=== PATIENT | female | born 1965 | race Caucasian/White ===

== ENCOUNTER 2017-03-01 23:58 | Observation (INO) | payer SELFPAY ==
[2017-03-02] MEDS ORDERED: fentaNYL 250 MCG/5 ML SDV IVPUSH ONE (00:09)
--- NOTE | 2017-03-02 00:35 | EDM.PDOC ---
ED HPI GENERAL MEDICAL PROBLEM - General Chief Complaint: Trauma Stated Complaint: BACK INJURY FROM HORSE BUCKING Time Seen by Provider: 03/02/17 00:12 Source of Information: Reports: Patient, RN - History of Present Illness INITIAL COMMENTS - FREE TEXT/NARRATIVE: she was bucked off a horse and now has pain over left shoulder/clavicle area and mid back. She does not think that she lost consciousness she drank three glasses or wine. generalized Pain Score (Numeric/FACES): 10 - Related Data Allergies Allergy/AdvReac Type Severity Reaction Status Date / Time codeine Allergy Vomiting Verified 08/21/16 20:10 Home Meds: Home Meds Blood Pressure Medication 03/02/17 [History] Past Medical History Other Cardiovascular History: REports have "flutters daily", "had a Holter monitoring about [address] Harris" Other Respiratory History: 27 yr history of smoking, current use reported as 1 pack/day Other Gastrointestinal History: "symptoms of Reflux most mornings, I take Rolaids when needed", Reports "hepatitis in s 'lesser type" Other Musculoskeletal History: Arthritits "all joints - stiff", hx: fracturing ribs and arms Other Psychiatric History: Denies, but reports "nervous, anxious about having a majory surgery" Endocrine/Metabolic History: Denies: Diabetes, Type II Other Endocrine/Metabolic History: [facility] screening in [place] and they told me "borderline diabetic" Other Dermatologic History: Psoriasis, currently on Right Calf, and Left knee and one in scalp - Infectious Disease History Infectious Disease History: Reports: None - Past Surgical History Other HEENT Surgeries/Procedures: [place] teeth extracted Other Female Surgeries/Procedures: 2 prior Cervical Conizations Social & Family History - Tobacco Use Smoking Status *Q: Current Some Day Smoker Years of Tobacco use: 27 Packs/Tins Daily: 0.4 - Recreational Drug Use Recreational Drug Use: No Drug Use in Last 12 Months: No Review of Systems - Review of Systems Review Of Systems: See Below Eyes: Denies: Blindness Mouth/Throat: Denies: Bleeding Respiratory: Denies: Shortness of Breath, Cough Cardiovascular: Denies: Chest Pain GI/Abdominal: Denies: Abdominal Pain ED EXAM, GENERAL - Physical Exam Exam: See Below (normal sensation and motor function LE's and UE's) Free Text/Narrative:: alert pupils equal and reactive no nystagmus head atraumatic neck non tender neg kebede sign neg racoon eyes normal speech lungs CTA heart RRR without m abdomen non tender marked tenderness over the region of the left clavicle and shoulder and superior anterolateral chest wall on the left no extremity injury noted she comes by EMS with spinal immobilization. Course - Vital Signs Last Recorded V/S: Last Vital Signs Temp 97.9 F 03/02/17 03:08 Pulse 100 03/02/17 03:16 Resp 16 03/02/17 03:16 BP 110/56 L 03/02/17 03:08 Pulse Ox 96 03/02/17 03:16 - Orders/Labs/Meds Orders: Active Orders 24 hr Category Date Time Status Communication Order [RC] PER UNIT ROUTINE Care 03/02/17 03:26 Active Cervical Spine wo Cont [CT] Stat Exams 03/02/17 00:04 Taken Chest 1V Frontal [CR] Stat Exams 03/02/17 00:04 Taken Chest 1V Frontal [CR] Stat Exams 03/02/17 01:59 Taken Chest wo Cont [CT] Stat Exams 03/02/17 01:59 Taken Clavicle Lt [CR] Stat Exams 03/02/17 00:04 Taken Clavicle Lt [CR] Stat Exams 03/02/17 01:59 Taken Head w wo Cont [CT] Stat Exams 03/02/17 00:04 Taken Lumbar Spine wo Cont [CT] Stat Exams 03/02/17 00:04 Taken Shoulder Comp Lt [CR] Stat Exams 03/02/17 00:04 Taken Thoracic Spine wo Cont [CT] Stat Exams 03/02/17 00:04 Taken Blood Alcohol [ETHANOL BLOOD MEDICAL] [CHEM] Stat Lab 03/02/17 03:34 Ordered CBC WITH AUTO DIFF [HEME] Stat Lab 03/02/17 03:27 Ordered COMPREHENSIVE METABOLIC PN,CMP [CHEM] Stat Lab 03/02/17 03:27 Ordered UA W/MICROSCOPIC [URIN] Stat Lab 03/02/17 03:27 Uncollected fentaNYL [Sublimaze] Med 03/02/17 02:00 Active 50 mcg IVPUSH Q45M PRN Medication Orders Fentanyl (Sublimaze) 50 mcg IVPUSH Q45M PRN PRN Reason: Pain Last Admin: 03/02/17 03:06 Dose: 50 mcg Meds: Medications Generic Name Dose Route Start Last Admin Trade Name Freq PRN Reason Stop Dose Admin Fentanyl 50 mcg 03/02/17 02:00 03/02/17 03:06 Sublimaze IVPUSH 50 mcg Q45M PRN Administration Pain Discontinued Medications Generic Name Dose Route Start Last Admin Trade Name Lizbet PRN Reason Stop Dose Admin Bacitracin 1 dose 03/02/17 02:42 03/02/17 02:53 Bacitracin Oint 1 Gm TOP 03/02/17 02:43 1 dose ONETIME ONE Administration Fentanyl 50 mcg 03/02/17 00:09 03/02/17 00:50 Sublimaze IVPUSH 03/02/17 00:10 Not Given ONETIME ONE Fentanyl Confirm 03/02/17 00:45 03/02/17 00:49 Sublimaze Administered 03/02/17 00:46 50 mcg Dose Administration 100 mcg .ROUTE .STK-MED ONE Fentanyl 50 mcg 03/02/17 01:23 03/02/17 01:34 Sublimaze IVPUSH 03/02/17 01:24 50 mcg ONETIME ONE Administration - Re-Assessments/Exams Free Text/Narrative Re-Assessment/Exam: 03/02/17 03:39 I reviewed radiographic findings with her. I spoke with Dr LEDESMA who agrees to accept as admission. See orders. Ronald Le MD Departure - Departure Time of Disposition: 03:42 Disposition: Admitted As Inpatient 64 Condition: Fair Clinical Impression: Trauma, Pulmonary contusion, Pneumothorax on left, Fracture of rib Closed left clavicular fracture Qualifiers: Encounter type: initial encounter Vertebral compression fracture Qualifiers: Encounter type: initial encounter Qualified Code(s): M48.50XA - Collapsed vertebra, not elsewhere classified, site unspecified, initial encounter for fracture - Discharge Information Forms: ED Department Discharge - My Orders Last 24 Hours: My Active Orders 03/02/17 00:04 Cervical Spine wo Cont [CT] Stat Chest 1V Frontal [CR] Stat Clavicle Lt [CR] Stat Head w wo Cont [CT] Stat Lumbar Spine wo Cont [CT] Stat Shoulder Comp Lt [CR] Stat Thoracic Spine wo Cont [CT] Stat 03/02/17 01:59 Chest 1V Frontal [CR] Stat Chest wo Cont [CT] Stat Clavicle Lt [CR] Stat 03/02/17 02:00 fentaNYL [Sublimaze] 50 mcg IVPUSH Q45M PRN 03/02/17 03:26 Communication Order [RC] PER UNIT ROUTINE 03/02/17 03:27 CBC WITH AUTO DIFF [HEME] Stat COMPREHENSIVE METABOLIC PN,CMP [CHEM] Stat UA W/MICROSCOPIC [URIN] Stat 03/02/17 03:34 Blood Alcohol [ETHANOL BLOOD MEDICAL] [CHEM] Stat - Assessment/Plan Last 24 Hours: My Active Orders 03/02/17 00:04 Cervical Spine wo Cont [CT] Stat Chest 1V Frontal [CR] Stat Clavicle Lt [CR] Stat Head w wo Cont [CT] Stat Lumbar Spine wo Cont [CT] Stat Shoulder Comp Lt [CR] Stat Thoracic Spine wo Cont [CT] Stat 03/02/17 01:59 Chest 1V Frontal [CR] Stat Chest wo Cont [CT] Stat Clavicle Lt [CR] Stat 03/02/17 02:00 fentaNYL [Sublimaze] 50 mcg IVPUSH Q45M PRN 03/02/17 03:26 Communication Order [RC] PER UNIT ROUTINE 03/02/17 03:27 CBC WITH AUTO DIFF [HEME] Stat COMPREHENSIVE METABOLIC PN,CMP [CHEM] Stat UA W/MICROSCOPIC [URIN] Stat 03/02/17 03:34 Blood Alcohol [ETHANOL BLOOD MEDICAL] [CHEM] Stat
[2017-03-02] MEDS ORDERED: fentaNYL 100 MCG/2 ML SDV ONE (00:45)
[2017-03-02] MEDS ORDERED: fentaNYL 100 MCG/2 ML SDV IVPUSH ONE ×2 (01:20→01:23)
[2017-03-02] MEDS ORDERED: Bacitracin Oint 1 GM U/D Packet TOP ONE (02:42)
[2017-03-02] MEDS: fentaNYL 100 MCG/2 ML SDV IVPUSH PRN ×4 (03:06→13:37)
[2017-03-02] MEDS ORDERED: Ondansetron 4 MG/2 ML SDV IVPUSH PRN (03:44)
[2017-03-02] MEDS ORDERED: Acetaminophen 325 MG Tab PO PRN (03:44)
[2017-03-02 04:12] LABS: CHLORIDE,CL 107 mmol/L (98-110); SODIUM,NA 139 mmol/L (136-146)
[2017-03-02] MEDS: Sodium Chloride 0.9% 1,000 ML IV SCH ×2 (04:45→12:34)
[2017-03-02] MEDS: Ketorolac 30 MG/ML SDV IVPUSH PRN ×2 (05:33→18:05)
[2017-03-02] MEDS: Docusate Sodium 100 MG Cap PO SCH (08:42)
--- NOTE | 2017-03-02 08:51 | PCM.CONS ---
<Tami Castro R - Last Filed: 03/02/17 08:46> H&P History of Present Illness - General Date of Service: 03/02/17 Source of Information: Patient History Limitations: Reports: No Limitations - History of Present Illness Initial Comments - Free Text/Narative: Patient is a 51 year old right hand dominant female who was bucked off a horse she was training last evening. She reports loss of consciousness, but is unsure for how long she was unconscious. Her son called EMS services and she was brought to the ED. She was admitted to the ICU by Dr. Aly for monitoring. She was found to have a left midshaft clavicle fracture. Orthopedic consult was obtained for this. She also has a small left pneumothorax as well as rib fractures and thoracic spine fracture, which has been reported to us as stable by Dr. Aly. She does report pain over the clavicle fracture site, as well as in the left elbow and forearm. No x-rays of the elbow or forearm have been done. She has refused a left hand x-ray earlier today. She had been complaining of her hand feeling odd, but did not realize she had 2 IV access sites in her dorsal hand. She denies previous injury to her left clavicle or upper extremity. She denies shortness of breath at rest. She denies distal paralysis and paresthesias. Onset of Symptoms: Reports: Sudden Symptom Onset Date: 03/01/17 Location: Reports: Chest, Back, Upper Extremity, Left Quality: Reports: Sharp, Stabbing Severity: Moderate Improves with: Reports: Rest Worsens with: Reports: Movement Context: Reports: Trauma Associated Symptoms: Reports: No Other Symptoms generalized Pain Score (Numeric/FACES): 8 - Related Data Allergies/Adverse Reactions: Allergies Allergy/AdvReac Type Severity Reaction Status Date / Time codeine Allergy Vomiting Verified 08/21/16 20:10 Home Medications: Home Meds ALPRAZolam [Alprazolam] 0.25 - 0.5 mg PO DAILY PRN 03/02/17 [History] Metoprolol Succinate 25 mg PO BID 03/02/17 [History] Past Medical History Other Cardiovascular History: REports have "flutters daily", "had a Holter monitoring about [address] Harris" Other Respiratory History: 27 yr history of smoking, current use reported as 1 pack/day Other Gastrointestinal History: "symptoms of Reflux most mornings, I take Rolaids when needed", Reports "hepatitis in '80's 'lesser type" Other Musculoskeletal History: Arthritits "all joints - stiff", hx: fracturing ribs and arms Other Psychiatric History: Denies, but reports "nervous, anxious about having a majory surgery" Endocrine/Metabolic History: Denies: Diabetes, Type II Other Endocrine/Metabolic History: [facility] screening in [place] and they told me "borderline diabetic" Other Dermatologic History: Psoriasis, currently on Right Calf, and Left knee and one in scalp - Infectious Disease History Infectious Disease History: Reports: None - Past Surgical History Other HEENT Surgeries/Procedures: [place] teeth extracted Other Female Surgeries/Procedures: 2 prior Cervical Conizations Social & Family History - Family History Family Medical History: Noncontributory - Tobacco Use Smoking Status *Q: Current Every Day Smoker Years of Tobacco use: 30 Packs/Tins Daily: 1 Second Hand Smoke Exposure: No - Caffeine Use Caffeine Use: Reports: Coffee - Alcohol Use Days Per Week of Alcohol Use: 7 Number of Drinks Per Day: 2 Total Drinks Per Week: 14 Date of Last Drink: 03/01/17 - Recreational Drug Use Recreational Drug Use: No Drug Use in Last 12 Months: No H&P Review of Systems - Review of Systems: Review Of Systems: See Below General: Reports: No Symptoms HEENT: Reports: Headaches Pulmonary: Denies: Shortness of Breath Cardiovascular: Denies: Chest Pain, Palpitations Gastrointestinal: Reports: No Symptoms Genitourinary: Reports: No Symptoms Musculoskeletal: Reports: Arm Pain, Back Pain Skin: Reports: Bruising Psychiatric: Reports: No Symptoms Neurological: Reports: No Symptoms Hematologic/Lymphatic: Reports: No Symptoms Immunologic: Reports: No Symptoms Exam - Exam Exam: See Below - Vital Signs Vital Signs: Last Vital Signs Temp 97.8 F 03/02/17 04:12 Pulse 100 03/02/17 03:55 Resp 17 03/02/17 07:00 BP 107/64 03/02/17 07:00 Pulse Ox 95 03/02/17 07:00 Weight: 73.4 kg - Exam Quality Assessment: Supplemental Oxygen General: Alert, Oriented Cardiovascular: Regular Rate, Regular Rhythm Extremities: Other (Exam of LUE reveals no obvious deformity. Skin integrity is intact. 2 IV access sites on dorsal aspect of hand. Slight ecchymosis to anterior chest wall. Tender with palpation over SC and AC joint, over midshaft clavicle site. Nontender with palpation of medial and lateral epicondyles, no antecubital fossa tenderness. Tender diffusely with palpation of soft tissues of elbow and forearm. Passively allows 10* short of full extension with flexion to 95*. 45* of pronation and full supination. Able to actively flex and extend wrist. AIN, PIN, ulnar motor is intact. Radial, ulnar, median sensation intact. Radial pulse 2+. ) Peripheral Pulses: 2+: Radial (L) Skin: Warm, Dry - Patient Data Lab Results Last 24 hrs: Laboratory Results - last 24 hr 03/02/17 03/02/17 03/02/17 Range/Units 03:40 03:40 03:40 WBC 17.50 H (4.0-11.0) K/uL RBC 4.30 (4.30-5.90) M/uL Hgb 13.5 (12.0-16.0) g/dL Hct 40.2 (36.0-46.0) % MCV 93.5 (80.0-98.0) fL MCH 31.4 (27.0-32.0) pg MCHC 33.6 (31.0-37.0) g/dL RDW Std Deviation 46.8 (28.0-62.0) fl RDW Coeff of Jimmie 14 (11.0-15.0) % Plt Count 254 (150-400) K/uL MPV 8.80 (7.40-12.00) fL Neut % (Auto) 79.1 (48.0-80.0) % Lymph % (Auto) 14.4 L (16.0-40.0) % Ellis % (Auto) 6.3 (0.0-15.0) % Eos % (Auto) 0.1 (0.0-7.0) % Baso % (Auto) 0.1 (0.0-1.5) % Neut # (Auto) 13.8 H (1.4-5.7) K/uL Lymph # (Auto) 2.5 H (0.6-2.4) K/uL Ellis # (Auto) 1.1 H (0.0-0.8) K/uL Eos # (Auto) 0.0 (0.0-0.7) K/uL Baso # (Auto) 0.0 (0.0-0.1) K/uL Nucleated RBC % 0.0 /100WBC Nucleated RBCs # 0 K/uL Sodium 139 (136-146) mmol/L Potassium 4.3 (3.5-5.1) mmol/L Chloride 107 (98-110) mmol/L Carbon Dioxide 21 (21-31) mmol/L BUN 9 (6.0-23.0) mg/dL Creatinine 0.8 (0.6-1.5) mg/dL Est Cr Clr Drug Dosing 70.23 mL/min Estimated GFR (MDRD) > 60.0 ml/min Glucose 116 H (60-110) mg/dL Calcium 8.9 (8.8-10.8) mg/dL Magnesium (1.5-2.3) mEq/L Total Bilirubin 0.3 (0.1-1.5) mg/dL AST 146 H (5-40) IU/L ALT 145 H (8-54) IU/L Alkaline Phosphatase 122 (40-150) Total Protein 7.1 (6.0-8.0) g/dL Albumin 4.3 (3.5-5.0) g/dL Globulin 2.8 (2.0-3.5) g/dL Albumin/Globulin Ratio 1.5 (1.3-2.8) Ethyl Alcohol 31.9 mg/dL 03/02/17 Range/Units 03:40 WBC (4.0-11.0) K/uL RBC (4.30-5.90) M/uL Hgb (12.0-16.0) g/dL Hct (36.0-46.0) % MCV (80.0-98.0) fL MCH (27.0-32.0) pg MCHC (31.0-37.0) g/dL RDW Std Deviation (28.0-62.0) fl RDW Coeff of Jimmie (11.0-15.0) % Plt Count (150-400) K/uL MPV (7.40-12.00) fL Neut % (Auto) (48.0-80.0) % Lymph % (Auto) (16.0-40.0) % Ellis % (Auto) (0.0-15.0) % Eos % (Auto) (0.0-7.0) % Baso % (Auto) (0.0-1.5) % Neut # (Auto) (1.4-5.7) K/uL Lymph # (Auto) (0.6-2.4) K/uL Ellis # (Auto) (0.0-0.8) K/uL Eos # (Auto) (0.0-0.7) K/uL Baso # (Auto) (0.0-0.1) K/uL Nucleated RBC % /100WBC Nucleated RBCs # K/uL Sodium (136-146) mmol/L Potassium (3.5-5.1) mmol/L Chloride (98-110) mmol/L Carbon Dioxide (21-31) mmol/L BUN (6.0-23.0) mg/dL Creatinine (0.6-1.5) mg/dL Est Cr Clr Drug Dosing mL/min Estimated GFR (MDRD) ml/min Glucose (60-110) mg/dL Calcium (8.8-10.8) mg/dL Magnesium 1.7 (1.5-2.3) mEq/L Total Bilirubin (0.1-1.5) mg/dL AST (5-40) IU/L ALT (8-54) IU/L Alkaline Phosphatase (40-150) Total Protein (6.0-8.0) g/dL Albumin (3.5-5.0) g/dL Globulin (2.0-3.5) g/dL Albumin/Globulin Ratio (1.3-2.8) Ethyl Alcohol mg/dL Result Diagrams: 03/02/17 03:40 03/02/17 03:40 Imaging Impressions Last 24 hrs: 1V of L clavicle done x2 this AM shows non to minimally displaced midshaft clavicle fracture. Consult PN Assessment/Plan Procedures: Procedures ASSAY OF AMYLASE (08/21/16) ASSAY OF FREE THYROXINE (03/02/15) ASSAY OF LIPASE (08/21/16) ASSAY OF MAGNESIUM (03/02/15) ASSAY OF TOTAL THYROXINE (03/02/15) ASSAY OF TROPONIN QUANT (08/21/16) ASSAY THYROID STIM HORMONE (12/24/15) BLOOD CULTURE FOR BACTERIA (08/21/16) BLOOD TYPING SEROLOGIC ABO (02/19/15) BLOOD TYPING SEROLOGIC RH(D) (02/19/15) CHEST X-RAY 2VW FRONTAL&LATL (12/24/15) CHORIONIC GONADOTROPIN ASSAY (02/19/15) COMPLETE CBC AUTOMATED (07/15/14) COMPLETE CBC W/AUTO DIFF WBC (08/21/16) COMPREHEN METABOLIC PANEL (08/21/16) CT ABD & PELV W/CONTRAST (08/21/16) ELECTROCARDIOGRAM TRACING (12/24/15) EMERGENCY DEPT VISIT (08/21/16) FREE ASSAY (FT-3) (03/02/15) HYDRATE IV INFUSION ADD-ON (08/21/16) LIPID PANEL (12/24/15) METABOLIC PANEL TOTAL CA (12/24/15) RBC ANTIBODY SCREEN (02/19/15) REPAIR BLADDER DEFECT (02/19/15) ROUTINE VENIPUNCTURE (08/21/16) THER/PROPH/DIAG INJ IV PUSH (08/21/16) TISSUE EXAM BY PATHOLOGIST (02/19/15) TISSUE EXAM BY PATHOLOGIST (01/23/15) TX/PRO/DX INJ NEW DRUG ADDON (08/21/16) URINALYSIS AUTO W/SCOPE (08/29/16) URINE CULTURE/COLONY COUNT (08/21/16) URINE TEST (08/21/16) US EXAM PELVIC COMPLETE (02/10/15) VAG HYST INCLUDING T/O (02/19/15) X-RAY EXAM RIBS UNI 2 VIEWS (07/15/14) (1) Closed left clavicular fracture SNOMED Code(s): 94145463 Code(s): S42.002A - FRACTURE OF UNSP PART OF LEFT CLAVICLE, INIT FOR CLOS FX Current Visit: Yes Qualifiers: Encounter type: initial encounter Clavicle location: shaft Fracture alignment: nondisplaced Qualified Code(s): S42.025A - Nondisplaced fracture of shaft of left clavicle, initial encounter for closed fracture Problem List Initiated/Reviewed/Updated: Yes Plan: recommend conservative treatment for L midshaft clavicle fracture - sling, NWB, no active range of motion to L shoulder, pain management will obtain 3v of L elbow and ap/lat of forearm. I do not anticipate fracture but patient complains of pain. will add Randolph 5/325 for pain control will continue to follow while hospitalized plan for follow-up in Ortho clinic in 2weeks for new x-ray of L clavicle - we will schedule for patient <Ly Armstrong - Last Filed: 03/02/17 19:41> Exam - Vital Signs Vital Signs: Last Vital Signs Temp 98.2 F 03/02/17 15:00 Pulse 96 03/02/17 15:59 Resp 17 03/02/17 19:00 BP 129/79 03/02/17 19:00 Pulse Ox 97 03/02/17 19:00 - Patient Data Lab Results Last 24 hrs: Laboratory Results - last 24 hr 03/02/17 03/02/17 03/02/17 Range/Units 03:40 03:40 03:40 WBC 17.50 H (4.0-11.0) K/uL RBC 4.30 (4.30-5.90) M/uL Hgb 13.5 (12.0-16.0) g/dL Hct 40.2 (36.0-46.0) % MCV 93.5 (80.0-98.0) fL MCH 31.4 (27.0-32.0) pg MCHC 33.6 (31.0-37.0) g/dL RDW Std Deviation 46.8 (28.0-62.0) fl RDW Coeff of Jimmie 14 (11.0-15.0) % Plt Count 254 (150-400) K/uL MPV 8.80 (7.40-12.00) fL Neut % (Auto) 79.1 (48.0-80.0) % Lymph % (Auto) 14.4 L (16.0-40.0) % Ellis % (Auto) 6.3 (0.0-15.0) % Eos % (Auto) 0.1 (0.0-7.0) % Baso % (Auto) 0.1 (0.0-1.5) % Neut # (Auto) 13.8 H (1.4-5.7) K/uL Lymph # (Auto) 2.5 H (0.6-2.4) K/uL Ellis # (Auto) 1.1 H (0.0-0.8) K/uL Eos # (Auto) 0.0 (0.0-0.7) K/uL Baso # (Auto) 0.0 (0.0-0.1) K/uL Nucleated RBC % 0.0 /100WBC Nucleated RBCs # 0 K/uL Sodium 139 (136-146) mmol/L Potassium 4.3 (3.5-5.1) mmol/L Chloride 107 (98-110) mmol/L Carbon Dioxide 21 (21-31) mmol/L BUN 9 (6.0-23.0) mg/dL Creatinine 0.8 (0.6-1.5) mg/dL Est Cr Clr Drug Dosing 70.23 mL/min Estimated GFR (MDRD) > 60.0 ml/min Glucose 116 H (60-110) mg/dL Calcium 8.9 (8.8-10.8) mg/dL Magnesium (1.5-2.3) mEq/L Total Bilirubin 0.3 (0.1-1.5) mg/dL AST 146 H (5-40) IU/L ALT 145 H (8-54) IU/L Alkaline Phosphatase 122 (40-150) Total Protein 7.1 (6.0-8.0) g/dL Albumin 4.3 (3.5-5.0) g/dL Globulin 2.8 (2.0-3.5) g/dL Albumin/Globulin Ratio 1.5 (1.3-2.8) Urine Color Urine Appearance Urine pH (5.0-8.0) Ur Specific [place] (1.001-1.035) Urine Protein (NEGATIVE) mg/dL Urine Glucose (UA) (NEGATIVE) mg/dL Urine Ketones (NEGATIVE) mg/dL Urine Occult Blood (NEGATIVE) Urine Nitrite (NEGATIVE) Urine Bilirubin (NEGATIVE) Urine Urobilinogen (<2.0) EU/dL Ur Leukocyte Esterase (NEGATIVE) Urine RBC (0-2/HPF) Urine WBC (0-5/HPF) Ur Epithelial Cells (NONE-FEW) Amorphous Sediment (NEGATIVE) Urine Bacteria (NEGATIVE) Hyaline Casts (0-2/LPF) Urine Mucus (NONE-MOD) Ethyl Alcohol 31.9 mg/dL 03/02/17 03/02/17 Range/Units 03:40 08:15 WBC (4.0-11.0) K/uL RBC (4.30-5.90) M/uL Hgb (12.0-16.0) g/dL Hct (36.0-46.0) % MCV (80.0-98.0) fL MCH (27.0-32.0) pg MCHC (31.0-37.0) g/dL RDW Std Deviation (28.0-62.0) fl RDW Coeff of Jimmie (11.0-15.0) % Plt Count (150-400) K/uL MPV (7.40-12.00) fL Neut % (Auto) (48.0-80.0) % Lymph % (Auto) (16.0-40.0) % Ellis % (Auto) (0.0-15.0) % Eos % (Auto) (0.0-7.0) % Baso % (Auto) (0.0-1.5) % Neut # (Auto) (1.4-5.7) K/uL Lymph # (Auto) (0.6-2.4) K/uL Ellis # (Auto) (0.0-0.8) K/uL Eos # (Auto) (0.0-0.7) K/uL Baso # (Auto) (0.0-0.1) K/uL Nucleated RBC % /100WBC Nucleated RBCs # K/uL Sodium (136-146) mmol/L Potassium (3.5-5.1) mmol/L Chloride (98-110) mmol/L Carbon Dioxide (21-31) mmol/L BUN (6.0-23.0) mg/dL Creatinine (0.6-1.5) mg/dL Est Cr Clr Drug Dosing mL/min Estimated GFR (MDRD) ml/min Glucose (60-110) mg/dL Calcium (8.8-10.8) mg/dL Magnesium 1.7 (1.5-2.3) mEq/L Total Bilirubin (0.1-1.5) mg/dL AST (5-40) IU/L ALT (8-54) IU/L Alkaline Phosphatase (40-150) Total Protein (6.0-8.0) g/dL Albumin (3.5-5.0) g/dL Globulin (2.0-3.5) g/dL Albumin/Globulin Ratio (1.3-2.8) Urine Color YELLOW Urine Appearance CLEAR Urine pH 5.5 (5.0-8.0) Ur Specific [place] >= 1.030 (1.001-1.035) Urine Protein NEGATIVE (NEGATIVE) mg/dL Urine Glucose (UA) NEGATIVE (NEGATIVE) mg/dL Urine Ketones NEGATIVE (NEGATIVE) mg/dL Urine Occult Blood TRACE-INTACT (NEGATIVE) Urine Nitrite NEGATIVE (NEGATIVE) Urine Bilirubin NEGATIVE (NEGATIVE) Urine Urobilinogen 0.2 (<2.0) EU/dL Ur Leukocyte Esterase NEGATIVE (NEGATIVE) Urine RBC 0-2 (0-2/HPF) Urine WBC 0-2 (0-5/HPF) Ur Epithelial Cells OCCASIONAL (NONE-FEW) Amorphous Sediment NOT SEEN (NEGATIVE) Urine Bacteria NOT SEEN (NEGATIVE) Hyaline Casts 3-5 (0-2/LPF) Urine Mucus LIGHT (NONE-MOD) Ethyl Alcohol mg/dL Result Diagrams: 03/02/17 03:40 03/02/17 03:40 Consult PN Assessment/Plan Procedures: Procedures ASSAY OF AMYLASE (08/21/16) ASSAY OF FREE THYROXINE (03/02/15) ASSAY OF LIPASE (08/21/16) ASSAY OF MAGNESIUM (03/02/15) ASSAY OF TOTAL THYROXINE (03/02/15) ASSAY OF TROPONIN QUANT (08/21/16) ASSAY THYROID STIM HORMONE (12/24/15) BLOOD CULTURE FOR BACTERIA (08/21/16) BLOOD TYPING SEROLOGIC ABO (02/19/15) BLOOD TYPING SEROLOGIC RH(D) (02/19/15) CHEST X-RAY 2VW FRONTAL&LATL (12/24/15) CHORIONIC GONADOTROPIN ASSAY (02/19/15) COMPLETE CBC AUTOMATED (07/15/14) COMPLETE CBC W/AUTO DIFF WBC (08/21/16) COMPREHEN METABOLIC PANEL (08/21/16) CT ABD & PELV W/CONTRAST (08/21/16) ELECTROCARDIOGRAM TRACING (12/24/15) EMERGENCY DEPT VISIT (08/21/16) FREE ASSAY (FT-3) (03/02/15) HYDRATE IV INFUSION ADD-ON (08/21/16) LIPID PANEL (12/24/15) METABOLIC PANEL TOTAL CA (12/24/15) RBC ANTIBODY SCREEN (02/19/15) REPAIR BLADDER DEFECT (02/19/15) ROUTINE VENIPUNCTURE (08/21/16) THER/PROPH/DIAG INJ IV PUSH (08/21/16) TISSUE EXAM BY PATHOLOGIST (02/19/15) TISSUE EXAM BY PATHOLOGIST (01/23/15) TX/PRO/DX INJ NEW DRUG ADDON (08/21/16) URINALYSIS AUTO W/SCOPE (08/29/16) URINE CULTURE/COLONY COUNT (08/21/16) URINE TEST (08/21/16) US EXAM PELVIC COMPLETE (02/10/15) VAG HYST INCLUDING T/O (02/19/15) X-RAY EXAM RIBS UNI 2 VIEWS (07/15/14) Plan: Pt seen and examined at 1700. Agree with above note. Patient having pain in clavicle region, improved with po meds. XR reviewed. Would not recommend surgical treatment at this time. Sling prn for pain. Follow up as noted. Discussed treatment plan and outcomes with patient and family.
[2017-03-02] MEDS ORDERED: Docusate Sodium 100 MG Cap PO SCH (09:00)
[2017-03-02] MEDS: HYDROmorphone 2 MG Tab PO PRN ×2 (10:12→23:47)
--- NOTE | 2017-03-02 10:17 | CT ---
EXAM DATE: 03/02/17 PATIENT'S AGE: 51 Patient: VIC DIAZ Facility: [place], [place] Site . Site : 1965 Study: CT Spine Cervical [id number]/20/2017 12:44:23 AM Ordering Physician: Rey Cardenas Final Report: INDICATION: Trauma TECHNIQUE: CT cervical spine without contrast. COMPARISON: None FINDINGS: Vertebral alignment: Alignment is normal. Vertebrae: There are no fractures or suspicious bony lesions. Discs and facet joints: Multilevel degenerative changes. Extraspinal findings: Prevertebral soft tissues, visualized airway, and visualized lungs are unremarkable. IMPRESSION: No evidence of acute cervical spine trauma. Dictated by Cesar Lang MD @ 03/02/2017 12:51:20 AM Dictated by: Cesar Lang MD @ 03/02/2017 00:51:23 (Electronic Signature) Report Signed by Proxy. CL
--- NOTE | 2017-03-02 10:19 | CT ---
EXAM DATE: 03/02/17 PATIENT'S AGE: 51 Patient: VIC DIAZ Facility: [place], [place] Site . Site : 1965 Study: CT Spine Lumbar [id number]/20/2017 12:57:34 AM Ordering Physician: Rey Cardenas Final Report: INDICATION: trauma TECHNIQUE: CT lumbar spine without contrast COMPARISON: None FINDINGS: Vertebrae: There are no fractures or suspicious bony lesions. Discs and facet joints: Multilevel degenerative changes. Extraspinal findings: Atherosclerotic disease. Hysterectomy changes. IMPRESSION: No acute abnormality of the lumbar spine. Dictated by Yves Curtis MD @ 03/02/2017 1:24:08 AM Dictated by: Yves Curtis MD @ 03/02/2017 01:24:16 (Electronic Signature) Report Signed by Proxy. MTDD
--- NOTE | 2017-03-02 10:19 | CT ---
EXAM DATE: 03/02/17 PATIENT'S AGE: 51 Patient: VIC DIAZ Facility: [place], [place] Site . Site : 1965 Study: CT Head [id number]/20/2017 12:48:20 AM Ordering Physician: Rey Cardenas Final Report: INDICATION: trauma TECHNIQUE: CT Head without contrast. COMPARISON: None. FINDINGS: There is no sign of intracranial hemorrhage or mass effect. Ventricles and sulci are symmetric and midline. The hammer-white differentiation is preserved. No abnormal intra-axial or extra-axial fluid collection. No acute disease of the visualized paranasal sinuses and mastoid air cells. No fracture evident. No scalp hematoma/laceration. IMPRESSION: No acute intracranial process. Dictated by: Yves Curtis MD @ 03/02/2017 00:56:25 (Electronic Signature) Report Signed by Proxy. [facility]
--- NOTE | 2017-03-02 10:20 | CT ---
EXAM DATE: 03/02/17 PATIENT'S AGE: 51 Patient: VIC DIAZ Facility: [place], [place] Site . Site : 1965 Study: CT Spine Thoracic [id number]/20/2017 1:13:40 AM Ordering Physician: Rey Cardenas Final Report: INDICATION: trauma TECHNIQUE: CT thoracic spine without contrast COMPARISON: None FINDINGS: Vertebrae: Compression deformity of the T7 vertebral body with less than 10 percent vertebral body height loss with no retropulsion. Additional mild compression deformities of the T4 and T5 vertebral bodies. Mild compression deformity of the T10 vertebral body. Partially imaged comminuted left midclavicular fracture. Nondisplaced left 9th posterior rib fracture. Discs and facet joints: Disc spaces and facets are within normal limits. Extraspinal findings: Partially imaged small left-sided pneumothorax with associated pleural effusion. Wedge-type consolidation within the left lower lobe likely related to lung contusion. . IMPRESSION: 1. Multiple compression fractures involving the T4, T5, T7, and T10 vertebral bodies as described above. 2. Partially imaged comminuted left midclavicular fracture. 3. Nondisplaced left 9th posterior rib fracture. 4. Partially imaged left sided pneumothorax with associated pleural effusion. Note made of a lung contusion within the left lower lobe. Dictated by Yves Curtis MD @ 03/02/2017 1:35:03 AM Dictated by: Yves Curtis MD @ 03/02/2017 01:35:40 (Electronic Signature) Report Signed by Proxy. [facility]
--- NOTE | 2017-03-02 10:23 | CR ---
EXAM DATE: 03/02/17 PATIENT'S AGE: 51 Patient: VIC DIAZ Facility: [place], [place] Site . Site : 1965 Study: XRay Chest [id number]/20/2017 1:19:29 AM Ordering Physician: Rey Cardenas Final Report: INDICATION: trauma TECHNIQUE: Chest 1 view. Overlying artifact degrades evaluation. COMPARISON: None FINDINGS: Cardiovascular and mediastinum: Heart size and vasculature are normal in caliber and appearance. Mediastinum is within normal limits. Lungs and pleural space: No gross evidence for focal consolidation. No sign of pleural effusion. No pneumothorax. Bones and soft tissues: No significant findings. IMPRESSION: 1. Limited evaluation due to overlying artifact. No gross evidence for acute cardiopulmonary disease. 2. Comminuted left midclavicular fracture Dictated by Yves uCrtis MD @ 03/02/2017 1:37:40 AM Dictated by: Yves Curtis MD @ 03/02/2017 01:37:59 (Electronic Signature) Report Signed by Proxy. [facility]
--- NOTE | 2017-03-02 10:24 | CR ---
EXAM DATE: 03/02/17 PATIENT'S AGE: 51 Patient: VIC DIAZ Facility: [place], [place] Site . Site : 1965 Study: XRay Extremity Left [id number]/20/2017 1:19:54 AM Ordering Physician: Rey Cardenas Final Report: INDICATION: trauma TECHNIQUE: Single view of the left clavicle. Overlying artifact degrades evaluation. COMPARISON: None FINDINGS: Bones: Comminuted left midclavicular fracture. Joint spaces: Unremarkable. Soft tissues: Unremarkable. IMPRESSION: Comminuted left midclavicular fracture. Dictated by Yves Curtis MD @ 03/02/2017 1:39:32 AM Dictated by: Yves Curtis MD @ 03/02/2017 01:40:28 (Electronic Signature) Report Signed by Proxy. [facility]
--- NOTE | 2017-03-02 10:25 | CT ---
EXAM DATE: 03/02/17 PATIENT'S AGE: 51 Patient: VIC DIAZ Facility: [place], [place] Site . Site : 1965 Study: CT Chest [id number]/20/2017 2:36:34 AM Ordering Physician: Rey Cardenas Final Report: INDICATION: injury TECHNIQUE: CT chest without contrast. COMPARISON: None FINDINGS: Cardiovascular structures: Heart size is normal. Note made of a retroesophageal right innominate. Scattered calcified granulomata. Thoracic aorta and main pulmonary artery are normal in caliber. Mediastinum and laurita: No sign of mass or adenopathy. Lungs: Small less than 5 percent left-sided pneumothorax with associated trace associated pleural effusion. Wedge-shaped consolidation within the left lower lobe consistent with a lung contusion. Mild dependent atelectasis. Chest wall and axilla: No mass or adenopathy. Bones: Please see CT of the thoracic spine performed same day for further details. Comminuted left midclavicular fracture. Nondisplaced left 9th posterior rib fracture. Upper abdomen: Unremarkable. IMPRESSION: 1. Small less than 5 percent left-sided pneumothorax with associated trace associated pleural effusion. Wedge-shaped consolidation within the left lower lobe consistent with a lung contusion.. 2. Please see CT of the thoracic spine performed same day for further details. Dictated by Yves Curtis MD @ 03/02/2017 3:03:46 AM Dictated by: Yves Curtis MD @ 03/02/2017 03:03:59 (Electronic Signature) Report Signed by Proxy. [facility]
--- NOTE | 2017-03-02 10:26 | CR ---
EXAM DATE: 03/02/17 PATIENT'S AGE: 51 Patient: VIC DIAZ Facility: [place], [place] Site . Site : 1965 Study: XRay Extremity Left [id number]/20/2017 2:37:00 AM Ordering Physician: Rey Cardenas Final Report: INDICATION: injury TECHNIQUE: Single view of the left clavicle COMPARISON: None FINDINGS/IMPRESSION: Bones: Comminuted left midclavicular fracture. Joint spaces: Unremarkable. Soft tissues: Unremarkable. Dictated by Yves Curtis MD @ 03/02/2017 3:05:14 AM Dictated by: Yves Curtis MD @ 03/02/2017 03:05:21 (Electronic Signature) Report Signed by Proxy. [facility]
--- NOTE | 2017-03-02 10:27 | CR ---
EXAM DATE: 03/02/17 PATIENT'S AGE: 51 Patient: VIC DIAZ Facility: [place], [place] Site . Site : 1965 Study: XRay Chest [id number]/20/2017 2:37:19 AM Ordering Physician: Rey Cardenas Final Report: INDICATION: injury TECHNIQUE: Chest 1 view COMPARISON: None FINDINGS/IMPRESSION: Cardiovascular and mediastinum: Heart size and vasculature are normal in caliber and appearance. Mediastinum is within normal limits. Lungs and pleural space: The known left-sided pneumothorax is not radiographic apparent. Bones and soft tissues: Comminuted and left midclavicular fracture. Dictated by Yves Curtis MD @ 03/02/2017 3:06:46 AM Dictated by: Yves Curtis MD @ 03/02/2017 03:06:52 (Electronic Signature) Report Signed by Proxy. [facility]
--- NOTE | 2017-03-02 10:28 | CR ---
EXAM DATE: 03/02/17 PATIENT'S AGE: 51 Patient: VIC DIAZ Facility: [place], [place] Site . Site : 1965 Study: XRay Chest [id number]/20/2017 6:14:57 AM Ordering Physician: Sheeba Mensah Final Report: INDICATION: Pneumothorax. Technique: AP portable chest x-ray. Comparison: Chest x-ray and CT exams earlier today. Findings: The tiny pneumothorax seen on chest CT earlier today is not visible on this x- ray due to x-ray being less sensitive than CT. Comminuted acute displaced fracture left clavicle stable. Moderate elevation right hemidiaphragm more prominent. The heart size upper limits of normal mildly prominent. Mild amount of platelike atelectasis or scarring left lung base. No focal dense infiltrate or consolidation in either lung. Interstitial prominence in the right lung is mildly increased especially in the perihilar region. Chest otherwise stable. Dictated by Sky Liang MD @ Mar 02 2017 6:19AM (Electronic Signature) Report Signed by Proxy. [facility]
[2017-03-02] MEDS: Diazepam 2 MG Tab PO PRN ×2 (12:10→23:42)
--- NOTE | 2017-03-02 14:18 | CR ---
EXAMINATION: Left elbow and left forearm HISTORY: Pain COMPARISON: None TECHNIQUE: 3 views of the left elbow and 2 views of the left forearm FINDINGS: There is no fracture or acute osseous abnormality. The radiocarpal and radiocapitellar ali gnments are preserved. No elbow joint effusion. Probable mild joint space narrowing within the media l aspect of the elbow. There is a small insertional enthesophyte along the common extensor insertion on the distal humerus. IMPRESSION: 1. Degenerative changes without acute findings.
--- NOTE | 2017-03-02 14:49 | HP ---
DATE OF : 1965 PRIMARY CARE PHYSICIAN: Vernon Harris M.D. Consult was called. The patient was seen shortly after. CONCERNING QUESTION: Fell down from horse. HISTORY OF PRESENT ILLNESS: The patient is a 51-year-old lady, riding horse around 8:30 evening after a couple of drinks and the patient kept saying that "don't seat joiner me," and the patient also remarked that she lost consciousness and friend brought her in to the emergency room and workup by the trauma doctor and admitted for observation as the patient is very unclear about her status in the emergency room. Blood alcohol noted to be 35. Currently, the patient is complaining about left collarbone pain and back pain. Denies nausea or vomiting and denies any abdominal problem. PAST MEDICAL HISTORY: Significant for no diabetes, VA, CVA, or hypertension. ALLERGIES: Please refer to nursing note for details. MEDICATIONS: Please refer to nursing note for details. SOCIAL HISTORY: The patient is a current everyday smoker and one glass of wine every night, and again she said "don't seat joiner me." PAST SURGICAL HISTORY: Total hysterectomy, total oophorectomy, and one normal vaginal delivery, child . PHYSICAL EXAMINATION: GENERAL: A very pleasant, nice lady, smiled to the doctor, in no acute distress. HEENT: Normocephalic, atraumatic. Sclerae anicteric and a little bit of bruising on the left cheek and in front of the left ear. No swelling. Nontender. NECK: Trachea is midline. LUNGS: No crepitus. Bilateral breath sounds. ABDOMEN: Soft, nondistended. No pulsating, tender midline abdominal structure. No hernia appreciated. BACK: Tenderness around T4 to T10. No step-off. Pelvis is stable. TRAUMA WORKUP RESULTS: CT head is negative. CT cervical is normal and CT fluoroscopy with T4, T7, T10 compression fracture nondisplaced, and no retropulsion and also left comminute clavicular fracture. IMPRESSION: Fell down from horse, loss of consciousness. After trauma workup, admit for observation as the patient was confused. This morning, the patient is absolutely clear mind and very pleasant to the doctor. Continued to complain of pain at the back and also left clavicle pain with three compression fractures and a left clavicular fracture. The patient is going to be in pain for quite a while and pain management is going to be an issue. PLAN: Liquid diet this morning, advance as tolerated, and orthopedic consult for clavicular fracture management. CT scan also observed was small on pneumothorax on the left side and repeat chest x-ray 6 hours later does not show any pneumothorax. Official reading by myself. We will check another chest x-ray tomorrow and continue pain management. As always, thank you for the kind referral. RUI / SHANTANU /[id number]
[2017-03-02] MEDS ORDERED: Iopamidol 755 MG/ML 500 ML Multipack Bottle IVPUSH STA (15:04)
[2017-03-02] MEDS ORDERED: Metoprolol Succinate 25 MG Tab.ER ONE (15:56)
[2017-03-02] MEDS: Metoprolol Succinate 25 MG Tab.ER PO SCH ×2 (15:59→20:45)
[2017-03-02] MEDS: Acetaminophen/HYDROcodone 325-5 MG Tab PO PRN ×2 (15:59→20:40)
--- NOTE | 2017-03-02 16:24 | CT ---
CT of the abdomen and pelvis with contrast. HISTORY: Pain TECHNIQUE: Axial CT images were obtained of the abdomen and pelvis following administration of 100 m L of Isovue-370 in the right antecubital fossa without complication. Coronal and sagittal reconstruc tions obtained. FINDINGS: There is atelectasis noted within the lung bases. No pleural effusion. The liver, spleen, adrenal glands, pancreas appear normal. The gallbladder is normal. No bulky retro peritoneal lymphadenopathy or abdominal ascites. The kidneys enhance and function symmetrically without evidence of obstructive uropathy. The large and small bowel are normal in caliber without evidence of obstruction. No focal pericoloni c inflammation or stranding. The appendix appears normal. No bulky pelvic lymphadenopathy or free pe lvic fluid. The urinary bladder appears normal. There is a mild acute appearing compression fracture at T10. No retropulsion of fragments. IMPRESSION: 1. No acute findings within the abdomen or pelvis. 2. Mild T10 compression fracture along the superior endplate. 3. Bibasilar atelectasis.
--- NOTE | 2017-03-02 21:09 | PCM.SN ---
- Free Text/Narrative Note: thanks for ortho input; ct abd . no acute finding; ok to transfer pt to floor
[2017-03-03] MEDS: Metoprolol Succinate 25 MG Tab.ER PO SCH ×2 (00:08→08:24)
[2017-03-03] MEDS: Acetaminophen/HYDROcodone 325-5 MG Tab PO PRN ×3 (02:29→11:39)
[2017-03-03 06:01] LABS: CHLORIDE,CL 111 mmol/L (98-110); SODIUM,NA 138 mmol/L (136-146)
[2017-03-03] MEDS: HYDROmorphone 2 MG Tab PO PRN (06:24)
[2017-03-03] MEDS: Sodium Chloride 0.9% 1,000 ML IV SCH (06:26)
[2017-03-03] MEDS: Ketorolac 30 MG/ML SDV IVPUSH PRN (07:34)
[2017-03-03] MEDS: Docusate Sodium 100 MG Cap PO SCH (08:24)
--- NOTE | 2017-03-03 08:40 | PCM.SN ---
- Free Text/Narrative Note: pt up to chair for breakfast tolerating PO intake well pain well controlled with Denair 5/325 pt c/w not receiving HTN meds yet today elbow and forearm pain improving exam LUE - sling in place ecchymosis to anterior chest wall, remains TTP over clavicle fracture site AIN, PIN, ulnar motor is intact. radial, ulnar, median sensation intact. radial pulse 2+ nondisplaced L clavicle fx continue conservative care - sling, avoid AROM at shoulder, NWB LUE Denair 5/325 for home pain management follow-up in clinic in 2 weeks for new xr of L clavicle - appt scheduled for patient
--- NOTE | 2017-03-03 09:42 | CR ---
EXAM DATE: 03/02/17 PATIENT'S AGE: 51 Patient: VIC DIAZ Facility: [place], [place] Site . Site : 1965 Study: XRay Chest [id number]/21/2017 8:14:09 AM Ordering Physician: Sheeba Mensah Final Report: INDICATION: left PTX HISTORY: Followup pneumothorax. COMPARISON: CT of the chest 03/02/2017. Chest 1 view 03/02/2017. TECHNIQUE: Chest one-view portable. FINDINGS: There is no pneumothorax by plain film. No contralateral shift of mediastinal structures. Displaced fracture deformity of the left clavicular diaphysis. Mediastinal structures are normal. Lateral costophrenic sulci are sharp. Central airway is normal. The patient`s reported rib fracture is not seen with certainty by plain film. IMPRESSION: No pneumothorax identified by plain film. No contralateral shift of mediastinal structures. Dictated by Vernon Patel MD @ 03/03/2017 8:19:56 AM Dictated by: Vernon Patel MD @ 03/03/2017 08:20:06 (Electronic Signature) Report Signed by Proxy. [facility]
--- NOTE | 2017-03-03 10:39 | PCM.SURGPN ---
- General Info Date of Service: 03/03/17 Post-Op Diagnosis: trauma, fell down from horse Functional Status: Reports: Pain Controlled - Review of Systems General: Reports: No Symptoms Pulmonary: Reports: No Symptoms Gastrointestinal: Reports: No Symptoms Neurological: Reports: No Symptoms (hurts when upright, multiple compression fx , mild, stable) - Patient Data Vitals - most recent: Last Vital Signs Temp 97.7 F 03/03/17 08:00 Pulse 76 03/03/17 08:24 Resp 16 03/03/17 08:00 BP 131/78 03/03/17 08:24 Pulse Ox 93 L 03/03/17 08:00 Weight - most recent: 161 lb 13.109 oz I&O - last 24 hours: Intake & Output 03/02/17 03/03/17 03/03/17 22:59 06:59 14:59 Intake Total 1203 2300 Output Total 700 1400 Balance 503 900 Lab Results last 24 hrs: Laboratory Results - last 24 hr 03/03/17 03/03/17 Range/Units 05:01 05:01 WBC 9.30 (4.0-11.0) K/uL RBC 3.82 L (4.30-5.90) M/uL Hgb 11.6 L (12.0-16.0) g/dL Hct 36.7 (36.0-46.0) % MCV 96.1 (80.0-98.0) fL MCH 30.4 (27.0-32.0) pg MCHC 31.6 (31.0-37.0) g/dL RDW Std Deviation 49.6 (28.0-62.0) fl RDW Coeff of Jimmie 14 (11.0-15.0) % Plt Count 232 (150-400) K/uL MPV 8.90 (7.40-12.00) fL Neut % (Auto) 54.4 (48.0-80.0) % Lymph % (Auto) 33.0 (16.0-40.0) % [place] % (Auto) 10.4 (0.0-15.0) % Eos % (Auto) 2.0 (0.0-7.0) % Baso % (Auto) 0.2 (0.0-1.5) % Neut # (Auto) 5.1 (1.4-5.7) K/uL Lymph # (Auto) 3.1 H (0.6-2.4) K/uL [place] # (Auto) 1.0 H (0.0-0.8) K/uL Eos # (Auto) 0.2 (0.0-0.7) K/uL Baso # (Auto) 0.0 (0.0-0.1) K/uL Nucleated RBC % 0.0 /100WBC Nucleated RBCs # 0 K/uL Sodium 138 (136-146) mmol/L Potassium 4.4 (3.5-5.1) mmol/L Chloride 111 H (98-110) mmol/L Carbon Dioxide 23 (21-31) mmol/L BUN 7 (6.0-23.0) mg/dL Creatinine 0.7 (0.6-1.5) mg/dL Est Cr Clr Drug Dosing 80.26 mL/min Estimated GFR (MDRD) > 60.0 ml/min Glucose 97 (60-110) mg/dL Calcium 8.2 L (8.8-10.8) mg/dL Total Bilirubin 0.5 (0.1-1.5) mg/dL AST 72 H (5-40) IU/L ALT 89 H (8-54) IU/L Alkaline Phosphatase 111 (40-150) Total Protein 5.7 L (6.0-8.0) g/dL Albumin 3.5 (3.5-5.0) g/dL Globulin 2.2 (2.0-3.5) g/dL Albumin/Globulin Ratio 1.6 (1.3-2.8) Med Orders - Current: Current Medications Acetaminophen (Tylenol) 650 mg PO Q4H PRN PRN Reason: Pain (Mild 1-3)/fever Hydrocodone Bitart/Acetaminophen (Board[place] 325-5 Mg) 1 - 2 tab PO Q4H PRN PRN Reason: Pain Last Admin: 03/03/17 07:35 Dose: 2 tab Diazepam (Valium) 2 mg PO TID PRN PRN Reason: Breakthrough Pain Last Admin: 03/02/17 23:42 Dose: 2 mg Docusate Sodium (Colace) 100 mg PO DAILY ALISHA Last Admin: 03/03/17 08:24 Dose: 100 mg Fentanyl (Sublimaze) 50 mcg IVPUSH Q2H PRN PRN Reason: Pain Last Admin: 03/02/17 13:37 Dose: 50 mcg Hydromorphone HCl (Dilaudid) 2 mg PO Q6H PRN PRN Reason: Breakthrough Pain Last Admin: 03/03/17 06:24 Dose: 2 mg Sodium Chloride (Normal Saline) 1,000 mls @ 125 mls/hr IV ASDIRECTED [facility] Last Admin: 03/03/17 06:26 Dose: 125 mls/hr Ketorolac Tromethamine (Toradol) 30 mg IVPUSH Q8H PRN PRN Reason: Pain Stop: 03/07/17 04:29 Last Admin: 03/03/17 07:34 Dose: 30 mg Metoprolol Succinate (Toprol Xl) 25 mg PO BID [facility] Last Admin: 03/03/17 08:24 Dose: 25 mg Ondansetron HCl (Zofran) 4 mg IVPUSH Q4H PRN PRN Reason: Nausea Last Admin: 03/02/17 14:39 Dose: 4 mg Discontinued Medications Bacitracin (Bacitracin Oint 1 Gm) 1 dose TOP ONETIME ONE Stop: 03/02/17 02:43 Last Admin: 03/02/17 02:53 Dose: 1 dose Docusate Sodium (Colace) 100 mg PO BID [facility] Fentanyl (Sublimaze) 50 mcg IVPUSH ONETIME ONE Stop: 03/02/17 00:10 Last Admin: 03/02/17 00:50 Dose: Not Given Fentanyl (Sublimaze) Confirm Administered Dose 100 mcg .ROUTE .STK-MED ONE Stop: 03/02/17 00:46 Last Admin: 03/02/17 00:49 Dose: 50 mcg Fentanyl (Sublimaze) 50 mcg IVPUSH ONETIME ONE Stop: 03/02/17 01:24 Last Admin: 03/02/17 01:34 Dose: 50 mcg Fentanyl (Sublimaze) 50 mcg IVPUSH Q45M PRN PRN Reason: Pain Last Admin: 03/02/17 04:45 Dose: 50 mcg Iopamidol (Isovue Multipack-370 (76%)) 100 ml IVPUSH ONETIME STA Stop: 03/02/17 15:05 Last Admin: 03/02/17 15:36 Dose: 100 ml Metoprolol Succinate (Toprol Xl) Confirm Administered Dose 25 mg .ROUTE .STK- MED ONE Stop: 03/02/17 15:57 Last Admin: 03/02/17 16:04 Dose: Not Given - Exam GI/Abdominal Exam: Soft, Non-Tender Extremities: Normal Inspection (on L shoulder sling) Psy/Mental Status: alert, normal affect - Problem List Review Problem List Initiated/Reviewed/Updated: Yes - My Orders Last 24 Hours: Active Orders 24 hr Category Date Time Status Transfer Patient (Change bed) [ADT] Routine ADT 03/02/17 21:10 Ordered Communication Order [RC] ROUTINE Care 03/03/17 08:58 Ordered Communication Order [RC] ROUTINE Care 03/03/17 10:05 Ordered Full Liquid Diet [DIET] Diet 03/02/17 Lunch Active Regular Diet [DIET] Diet 03/03/17 Lunch Ordered Metoprolol Succinate [Toprol XL] Med 03/02/17 21:00 Active 25 mg PO BID Medication Orders Acetaminophen (Tylenol) 650 mg PO Q4H PRN PRN Reason: Pain (Mild 1-3)/fever Hydrocodone Bitart/Acetaminophen (Boardman 325-5 Mg) 1 - 2 tab PO Q4H PRN PRN Reason: Pain Last Admin: 03/03/17 07:35 Dose: 2 tab Admin: 03/03/17 02:29 Dose: 2 tab Admin: 03/02/17 20:40 Dose: 2 tab Admin: 03/02/17 15:59 Dose: 1 tab Diazepam (Valium) 2 mg PO TID PRN PRN Reason: Breakthrough Pain Last Admin: 03/02/17 23:42 Dose: 2 mg Admin: 03/02/17 12:10 Dose: 2 mg Docusate Sodium (Colace) 100 mg PO DAILY ALISHA Last Admin: 03/03/17 08:24 Dose: 100 mg Admin: 03/02/17 08:42 Dose: 100 mg Fentanyl (Sublimaze) 50 mcg IVPUSH Q2H PRN PRN Reason: Pain Last Admin: 03/02/17 13:37 Dose: 50 mcg Admin: 03/02/17 07:45 Dose: 50 mcg Hydromorphone HCl (Dilaudid) 2 mg PO Q6H PRN PRN Reason: Breakthrough Pain Last Admin: 03/03/17 06:24 Dose: 2 mg Admin: 03/02/17 23:47 Dose: 2 mg Admin: 03/02/17 10:12 Dose: 2 mg Sodium Chloride (Normal Saline) 1,000 mls @ 125 mls/hr IV ASDIRECTED [facility] Last Admin: 03/03/17 06:26 Dose: 125 mls/hr Infusion: 03/02/17 20:34 Dose: 125 mls/hr Admin: 03/02/17 12:34 Dose: 125 mls/hr Infusion: 03/02/17 12:34 Dose: 125 mls/hr Admin: 03/02/17 04:45 Dose: 125 mls/hr Ketorolac Tromethamine (Toradol) 30 mg IVPUSH Q8H PRN PRN Reason: Pain Stop: 03/07/17 04:29 Last Admin: 03/03/17 07:34 Dose: 30 mg Admin: 03/02/17 18:05 Dose: 30 mg Admin: 03/02/17 05:33 Dose: 30 mg Metoprolol Succinate (Toprol Xl) 25 mg PO BID [facility] Last Admin: 03/03/17 08:24 Dose: 25 mg Admin: 03/03/17 00:08 Dose: 25 mg Admin: 03/02/17 20:45 Dose: Admin: 03/02/17 15:59 Dose: 25 mg Ondansetron HCl (Zofran) 4 mg IVPUSH Q4H PRN PRN Reason: Nausea Last Admin: 03/02/17 14:39 Dose: 4 mg - Assessment Assessment (Free Text/Narrative):: hd#2 from fell down from horse ride. Doing well, pain control remained an issue , when upright; pt has been ambulating to bathroom; ortho consult re L clavicular fx, plan per ortho, fu 2 wk; brace for compression fx, wear when upright, till spine surg/neurosurg consult; adv diet to regular, continue pain management; likely dc home after lunch - Plan Plan (Free Text/Narrative):: hd#2 from fell down from horse ride. Doing well, pain control remained an issue , when upright; pt has been ambulating to bathroom; ortho consult re L clavicular fx, plan per ortho, fu 2 wk; brace for compression fx, wear when upright, till spine surg/neurosurg consult; adv diet to regular, continue pain management; likely dc home after lunch
[2017-03-03 12:32] VITALS: BP 136/82
--- NOTE | 2017-03-03 13:04 | PCM.DCSUM1 ---
Discharge Summary - Hospital Course Free Text/Narrative:: pt fell down from horse ride, and admitted via trauma 2 days as pt was confused ; trauma workup revealed comp fx t4,5,7,10, and L clavicular fx and small L ptx; - Discharge Data Discharge Date: 03/03/17 Discharge Disposition: Home, Self-Care 01 Condition: Good - Patient Summary/Data Consults: Consultations 03/02/17 07:05 Consult to Physician [CONS] Routine Hospital Course: pt was admitted to ICU; icu stay was uneventful; pt moved to the floor the next day; L clavicular fx > plan per ortho Ptx L > resolved after cxr X 2 rib fx and compression fx > brace and pain management pt tolerated po diet, and pain is in control; pt will have fu appt with ortho, neurosurg or spin surg in a wk; wear L shoulder sling; and brace when in upright position; fu with primary care 1 wk fu with me 3 wks or prn - Patient Instructions Diet: Regular Diet as Tolerated Activity: Apply Ice, Non Weight Bearing, No Strenuous Activities, Rest and Relax Today Activity, Other: Sling to L arm at all times; brace when in upright position Driving: Do Not Drive Driving, Other: No driving while in sling and taking narcotic pain medications Showering/Bathing: May Shower Notify Provider of: Fever, Increased Pain, Nausea and/or Vomiting - Discharge Plan Prescriptions/Med Rec: Acetaminophen/HYDROcodone [[place] 325-5 MG] 1 - 2 tab PO Q4H PRN #80 tablet PRN Reason: Pain Home Medications: Home Meds ALPRAZolam [Alprazolam] 0.25 - 0.5 mg PO DAILY PRN 03/02/17 [History] Metoprolol Succinate 25 mg PO BID 03/02/17 [History] Acetaminophen/HYDROcodone [[place] 325-5 MG] 1 - 2 tab PO Q4H PRN #80 tablet 03/03 [Rx] Referrals: Vernon Harris MD [Primary Care Provider] - Tami Castro PA [Physician Renal Medicine Specialist] - 03/16/17 9:45 am (If you have questions or concerns prior to your follow-up appointment, please call Dr. Armstrong 's office. ) - Discharge Summary/Plan Comment DC Time >30 min.: Yes - Patient Data Vitals - Most Recent: Last Vital Signs Temp 97.6 F 03/03/17 12:00 Pulse 73 03/03/17 12:00 Resp 16 03/03/17 12:00 BP 136/82 03/03/17 12:00 Pulse Ox 91 L 03/03/17 12:00 Weight - Most Recent: 161 lb 13.109 oz I&O - Last 24 hours: Intake & Output 03/02/17 03/03/17 03/03/17 22:59 06:59 14:59 Intake Total 1203 2300 Output Total 700 1400 Balance 503 900 Lab Results - Last 24 hrs: Laboratory Results - last 24 hr 03/03/17 03/03/17 Range/Units 05:01 05:01 WBC 9.30 (4.0-11.0) K/uL RBC 3.82 L (4.30-5.90) M/uL Hgb 11.6 L (12.0-16.0) g/dL Hct 36.7 (36.0-46.0) % MCV 96.1 (80.0-98.0) fL MCH 30.4 (27.0-32.0) pg MCHC 31.6 (31.0-37.0) g/dL RDW Std Deviation 49.6 (28.0-62.0) fl RDW Coeff of Jimmie 14 (11.0-15.0) % Plt Count 232 (150-400) K/uL MPV 8.90 (7.40-12.00) fL Neut % (Auto) 54.4 (48.0-80.0) % Lymph % (Auto) 33.0 (16.0-40.0) % [place] % (Auto) 10.4 (0.0-15.0) % Eos % (Auto) 2.0 (0.0-7.0) % Baso % (Auto) 0.2 (0.0-1.5) % Neut # (Auto) 5.1 (1.4-5.7) K/uL Lymph # (Auto) 3.1 H (0.6-2.4) K/uL [place] # (Auto) 1.0 H (0.0-0.8) K/uL Eos # (Auto) 0.2 (0.0-0.7) K/uL Baso # (Auto) 0.0 (0.0-0.1) K/uL Nucleated RBC % 0.0 /100WBC Nucleated RBCs # 0 K/uL Sodium 138 (136-146) mmol/L Potassium 4.4 (3.5-5.1) mmol/L Chloride 111 H (98-110) mmol/L Carbon Dioxide 23 (21-31) mmol/L BUN 7 (6.0-23.0) mg/dL Creatinine 0.7 (0.6-1.5) mg/dL Est Cr Clr Drug Dosing 80.26 mL/min Estimated GFR (MDRD) > 60.0 ml/min Glucose 97 (60-110) mg/dL Calcium 8.2 L (8.8-10.8) mg/dL Total Bilirubin 0.5 (0.1-1.5) mg/dL AST 72 H (5-40) IU/L ALT 89 H (8-54) IU/L Alkaline Phosphatase 111 (40-150) Total Protein 5.7 L (6.0-8.0) g/dL Albumin 3.5 (3.5-5.0) g/dL Globulin 2.2 (2.0-3.5) g/dL Albumin/Globulin Ratio 1.6 (1.3-2.8) Med Orders - Current: Current Medications Acetaminophen (Tylenol) 650 mg PO Q4H PRN PRN Reason: Pain (Mild 1-3)/fever Hydrocodone Bitart/Acetaminophen ([place] 325-5 Mg) 1 - 2 tab PO Q4H PRN PRN Reason: Pain Last Admin: 03/03/17 11:39 Dose: 2 tab Docusate Sodium (Colace) 100 mg PO DAILY [facility] Last Admin: 03/03/17 08:24 Dose: 100 mg Sodium Chloride (Normal Saline) 1,000 mls @ 125 mls/hr IV ASDIRECTED [facility] Last Admin: 03/03/17 06:26 Dose: 125 mls/hr Ketorolac Tromethamine (Toradol) 30 mg IVPUSH Q8H PRN PRN Reason: Pain Stop: 03/07/17 04:29 Last Admin: 03/03/17 07:34 Dose: 30 mg Metoprolol Succinate (Toprol Xl) 25 mg PO BID [facility] Last Admin: 03/03/17 08:24 Dose: 25 mg Ondansetron HCl (Zofran) 4 mg IVPUSH Q4H PRN PRN Reason: Nausea Last Admin: 03/02/17 14:39 Dose: 4 mg Discontinued Medications Bacitracin (Bacitracin Oint 1 Gm) 1 dose TOP ONETIME ONE Stop: 03/02/17 02:43 Last Admin: 03/02/17 02:53 Dose: 1 dose Diazepam (Valium) 2 mg PO TID PRN PRN Reason: Breakthrough Pain Last Admin: 03/02/17 23:42 Dose: 2 mg Docusate Sodium (Colace) 100 mg PO BID ALISHA Fentanyl (Sublimaze) 50 mcg IVPUSH ONETIME ONE Stop: 03/02/17 00:10 Last Admin: 03/02/17 00:50 Dose: Not Given Fentanyl (Sublimaze) Confirm Administered Dose 100 mcg .ROUTE .STK-MED ONE Stop: 03/02/17 00:46 Last Admin: 03/02/17 00:49 Dose: 50 mcg Fentanyl (Sublimaze) 50 mcg IVPUSH ONETIME ONE Stop: 03/02/17 01:24 Last Admin: 03/02/17 01:34 Dose: 50 mcg Fentanyl (Sublimaze) 50 mcg IVPUSH Q45M PRN PRN Reason: Pain Last Admin: 03/02/17 04:45 Dose: 50 mcg Fentanyl (Sublimaze) 50 mcg IVPUSH Q2H PRN PRN Reason: Pain Last Admin: 03/02/17 13:37 Dose: 50 mcg Hydromorphone HCl (Dilaudid) 2 mg PO Q6H PRN PRN Reason: Breakthrough Pain Last Admin: 03/03/17 06:24 Dose: 2 mg Iopamidol (Isovue Multipack-370 (76%)) 100 ml IVPUSH ONETIME STA Stop: 03/02/17 15:05 Last Admin: 03/02/17 15:36 Dose: 100 ml Metoprolol Succinate (Toprol Xl) Confirm Administered Dose 25 mg .ROUTE .STK- MED ONE Stop: 03/02/17 15:57 Last Admin: 03/02/17 16:04 Dose: Not Given *Q Meaningful Use (DIS) - VTE *Q VTE Criteria *Q: - Stroke *Q Stroke Criteria *Q: - AMI *Q AMI Criteria *Q:
== END 2017-03-03 14:05 | disposition home or self-care (01) ==
LOC: MW.ED 23:58 → MW.ICU 03-02 03:35 → MW.MS 03-02 21:40
PROVIDERS: ADMIT Surgery; ATTEND Surgery
DX: S42.025A Nondisplaced fracture of shaft of left clavicle, initial encounter for closed fracture (principal); I10 Essential (primary) hypertension; E78.1 Pure hyperglyceridemia; E78.00 Pure hypercholesterolemia, unspecified; F41.9 Anxiety disorder, unspecified; Z88.8 Allergy status to other drugs, medicaments and biological substances; V80.010A Animal-rider injured by fall from or being thrown from horse in noncollision accident, initial encounter; Z79.899 Other long term (current) drug therapy; F17.210 Nicotine dependence, cigarettes, uncomplicated; Z90.710 Acquired absence of both cervix and uterus; Z98.890 Other specified postprocedural states
CPT/HCPCS: 36415; 70450; 71010; 71250; 72125; 72128; 72131; 73000; 73080; 73090; 74177; 80053; 81001; 83735; 85025; 96374; 96376; 99285; A9270; G0480; J1885; J2405; J3010; J7040; Q9967; 96361; 96375; 99284; G0378; G0390

== ENCOUNTER 2021-08-25 11:20 | Emergency (ER) | payer SELFPAY ==
[2021-08-25 12:24] VITALS: BP 132/83; PULSE 88
== END 2021-08-25 12:17 | disposition home or self-care (01) ==
LOC: MW.ED 11:20
DX: S40.011A Contusion of right shoulder, initial encounter (principal); Z88.5 Allergy status to narcotic agent; Z87.891 Personal history of nicotine dependence; W01.0XXA Fall on same level from slipping, tripping and stumbling without subsequent striking against object, initial encounter
CPT/HCPCS: 71045; 71045-26; 73030-26-RT; 73030-RT; 99283-25

== ENCOUNTER 2022-12-28 12:48 | Emergency (ER) | payer SELFPAY ==
[2022-12-28 13:19] VITALS: BP 142/83; PULSE 80
== END 2022-12-28 14:38 | disposition left against medical advice (07) ==
LOC: MW.ED 12:48
DX: M79.644 Pain in right finger(s) (principal); I10 Essential (primary) hypertension; F17.210 Nicotine dependence, cigarettes, uncomplicated; Z88.5 Allergy status to narcotic agent; Z79.899 Other long term (current) drug therapy
CPT/HCPCS: 73130-26-RT; 73130-RT; 99283

== ENCOUNTER 2023-02-15 22:50 | Emergency (ER) | payer SELFPAY ==
[2023-02-15] MEDS ORDERED: Naloxone 0.4 MG/ML SDV IVPUSH PRN (23:00)
[2023-02-15] MEDS ORDERED: Morphine 2 MG/ML SYRINGE ONE (23:01)
[2023-02-15] MEDS ORDERED: Ondansetron 4 MG/2 ML SDV ONE (23:01)
[2023-02-15] MEDS ORDERED: Sodium Chloride 0.9% 10 ML Syringe FLUSH PRN (23:02)
[2023-02-15] MEDS ORDERED: Sodium Chloride 0.9% 2.5 ML Syringe FLUSH PRN (23:02)
[2023-02-15] MEDS: Morphine 2 MG/ML SYRINGE IVPUSH ONE (23:05)
[2023-02-15] MEDS: Ondansetron 4 MG/2 ML SDV IVPUSH ONE (23:05)
[2023-02-15] MEDS ORDERED: Sodium Chloride 0.9% 1,000 ML IV ONE (23:07)
[2023-02-15 23:13] LABS: BASOPHILS PERCENT AUTO 0.3 % (0.0-1.5); EOSINOPHILS ABSOLUTE AUTO 0.3 K/uL (0.0-0.7); HEMATOCRIT 37.6 % (36.0-46.0); HEMOGLOBIN 13.2 g/dL (12.0-16.0); LYMPHOCYTES ABSOLUTE AUTO 4.6 K/uL (0.6-2.4); LYMPHOCYTES PERCENT AUTO 34.2 % (16.0-40.0); MEAN CORPUSCULAR HEMOGLOBIN 32.1 pg (27.0-32.0); MEAN CORPUSCULAR HGB CONC 35.1 g/dL (31.0-37.0); MEAN CORPUSCULAR VOLUME 91.5 fL (80.0-98.0); MONOCYTES ABSOLUTE AUTO 0.9 K/uL (0.0-0.8); MONOCYTES PERCENT AUTO 6.5 % (0.0-15.0); NEUTROPHILS ABSOLUTE AUTO 7.6 K/uL (1.4-5.7); NRBC ABSOLUTE 0 K/uL; PLATELET COUNT,PLT 279 K/uL (150-400); RED BLOOD CELL COUNT 4.11 M/uL (4.30-5.90)
[2023-02-15] MEDS ORDERED: Morphine 2 MG/ML SYRINGE IVPUSH ONE (23:27)
[2023-02-15 23:29] LABS: INR 0.98 (0.86-1.11); PTT,PARTIAL THROMBOPLSTIN TIME 26.2 SEC (23.9-30.7)
[2023-02-15] MEDS ORDERED: Diphtheria,Pertussis(Acell),Tetanus Vaccine 0.5 ML Syringe IM ONE (23:31)
[2023-02-15] MEDS ORDERED: Lidocaine 1% with EPINEPHrine 1:100,000 20 ML MDV INJECT ONE ×2 (23:31→23:41)
[2023-02-15 23:35] LABS: A/G RATIO 1.1 (0.9-1.6); ALANINE AMINOTRANSFERASE,ALT 75 IU/L (14-63); ALBUMIN 3.6 g/dL (3.4-5.0); ALKALINE PHOSPHATASE 98 U/L (46-116); ASPARTATE AMNIOTRANSFERASE,AST 64 IU/L (15-37); BILIRUBIN TOTAL 0.4 mg/dL (0.2-1.0); BLOOD UREA NITROGEN,BUN 9 mg/dL (7.0-18.0); CARBON DIOXIDE,CO2 23.6 mmol/L (21.0-32.0); CHLORIDE,CL 95 mmol/L (98-107); CREATININE 0.8 mg/dL (0.6-1.0); ETHANOL BLOOD MEDICAL 166 mg/dL; GLUCOSE RANDOM 104 mg/dL (74-106); LIPASE 63 U/L (73-393); POTASSIUM,K 3.1 mmol/L (3.5-5.1); PROTEIN TOTAL,TP 6.8 g/dL (6.4-8.2); SODIUM,NA 132 mmol/L (136-145)
[2023-02-15 23:38] LABS: ESTIMATED GFR 85 mL/min (>60); LACTIC ACID 2.2 mmol/L (0.4-2.0)
[2023-02-15] MEDS ORDERED: Iopamidol 755 MG/ML 500 ML Multipack Bottle IVPUSH ONE (23:41)
[2023-02-15] MEDS ORDERED: Lidocaine 1% with EPINEPHrine 1:100,000 50 ML MDV ONE (23:44)
[2023-02-16] MEDS ORDERED: Morphine 4 MG/ML Syringe IVPUSH ONE (00:28)
[2023-02-16] MEDS ORDERED: ceFAZolin 2 GM in Sodium Chloride 0.9% 50 ML IV ONE (00:38)
[2023-02-16] MEDS ORDERED: Lidocaine 1% 5 ML VIAL INJECT ONE (00:50)
[2023-02-16] MEDS: Ondansetron 4 MG/2 ML SDV IVPUSH ONE (01:09)
[2023-02-16] MEDS: Morphine 2 MG/ML SYRINGE IVPUSH ONE (01:09)
[2023-02-16] MEDS ORDERED: fentaNYL 50 MCG/ML SDV IVPUSH ONE (01:52)
[2023-02-16] MEDS ORDERED: Sodium Chloride 0.9% 1,000 ML IV STA (01:55)
[2023-02-16 02:03] VITALS: BP 94/55; PULSE 82
== END 2023-02-16 02:30 ==
LOC: MW.ED 22:50
DX: S62.633B Displaced fracture of distal phalanx of left middle finger, initial encounter for open fracture (principal); S62.621A Displaced fracture of middle phalanx of left index finger, initial encounter for closed fracture; S22.22XA Fracture of body of sternum, initial encounter for closed fracture; S01.01XA Laceration without foreign body of scalp, initial encounter; I10 Essential (primary) hypertension; Z23 Encounter for immunization; Z88.5 Allergy status to narcotic agent; Z79.899 Other long term (current) drug therapy; W55.12XA Struck by horse, initial encounter
CPT/HCPCS: 12001; 12002; 12031; 36415; 70450; 70450-26; 71260; 71260-26; 72125; 72125-26; 73130-26-LT; 73130-LT; 73552-26-LT; 73552-LT; 74177; 74177-26; 80053; 80307; 83605; 83690; 84484; 85025; 85610; 85730; 86850; 86900; 86901; 90471; 90715; 93005; 93010; 96361; 96365; 96375; 96376; 99285-25; 99291; J0690; J2270; J2405; J3010; J3490; J7030; Q9967